=== PATIENT | female | born 1985 | race Caucasian/White ===

== ENCOUNTER 2016-09-19 21:27 | Emergency (ER) | payer SELFPAY ==
[2016-09-19 21:35] VITALS: BP 112/78
[2016-09-19] MEDS ORDERED: MORPHINE SULFATE 10 MG/ML VIAL. IM ONE (23:00)
[2016-09-19] MEDS ORDERED: LIDOCAINE 1% / SOD BICARB 8.4% 20 ML VIAL. IJ ONE (23:00)
[2016-09-19] MEDS ORDERED: HYDR-971 PO (23:52)
[2016-09-19] MEDS ORDERED: CLIN-44 PO (23:52)
--- NOTE | 2016-09-19 23:52 | PHYS DOC ---
Past Medical History Past Medical History: No Pertinent History Past Surgical History: No Surgical History Alcohol Use: None Drug Use: Marijuana Adult General Chief Complaint Chief Complaint: ABSCESS HPI HPI Patient is a 30 year old female presents emergency department stating that she has an abscess on her left buttocks. She states that it's been there for approximately one day. She states that the size is approximately size of a baseball. Denies any drainage or discharge coming from the site. She does state that she has had increased pain and discomfort. She has not taken anything for the pain. She denies fever, chills or any nausea or vomiting. Review of Systems Review of Systems Constitutional: Denies fever or chills [] Eyes: Denies change in visual acuity, redness, or eye pain [] HENT: Denies nasal congestion or sore throat [] Respiratory: Denies cough or shortness of breath [] Cardiovascular: No additional information not addressed in HPI [] GI: Denies abdominal pain, nausea, vomiting, bloody stools or diarrhea [] : Denies dysuria or hematuria [] Musculoskeletal: Denies back pain or joint pain [] Integument: Denies rash or skin lesions. Abscess to left buttock Neurologic: Denies headache, focal weakness or sensory changes [] Current Medications Current Medications Current Medications Medications (Trade) Dose Ordered Sig/[facility] Start Time Stop Time Status Last Admin Dose Admin Lidocaine/Sodium Bicarbonate (Buffered Lidocaine 1%) 20 ml 1X ONCE 09/19/16 23:00 09/19/16 23:01 DC 09/19/16 23:01 20 ML Morphine Sulfate 5 mg 1X ONCE 09/19/16 23:00 09/19/16 23:01 DC 09/19/16 23:01 5 MG Allergies Allergies Allergies Coded Allergies Type Severity Reaction Last Updated Verified No Known Drug Allergies 09/19/16 No Physical Exam Physical Exam Constitutional: Well developed, well nourished, no acute distress, non-toxic appearance. [] HENT: Normocephalic, atraumatic, bilateral external ears normal, oropharynx moist, no oral exudates, nose normal. [] Eyes: PERRLA, EOMI, conjunctiva normal, no discharge. [] Neck: Normal range of motion, no tenderness, supple, no stridor. [] Cardiovascular:Heart rate regular rhythm, no murmur [] Lungs & Thorax: Bilateral breath sounds clear to auscultation [] Skin: Warm, dry, no erythema, no rash. Patient with an area on the left buttocks that appears to be the size of a baseball. It is very tender red and warm with no drainage coming from the site. Back: No tenderness Extremities: No tenderness, no cyanosis, no clubbing, ROM intact, no edema. [] Neurologic: Alert and oriented X 3, normal motor function, normal sensory function, no focal deficits noted. [] Psychologic: Affect normal, judgement normal, mood normal. [] Current Patient Data Vital Signs Vital Signs Date Time Temp Pulse Resp B/P Pulse Ox O2 Delivery O2 Flow Rate FiO2 09/19/16 23:01 18 98 Room Air 09/19/16 21:35 98.6 106 98.6 EKG EKG [] Radiology/Procedures Radiology/Procedures [] Course & Med Decision Making Course & Med Decision Making Pertinent Labs and Imaging studies reviewed. (See chart for details) Patient will be discharged home in stable condition. She'll be provided clindamycin to take for the infection. She'll also be provided with hydrocodone for pain and discomfort. She was instructed this medication will cause drowsiness do not take any be alert and oriented. Recommended warm moist packs to the area several times a day 20 minutes at a time. Recommended following up in the next 3-5 days. Signs and symptoms to return back to emergency department as been provided. Family members agree with discharge instructions treatment regimens and follow-up recommendations. Dragon Disclaimer Dragon Disclaimer This electronic medical record was generated, in whole or in part, using a voice recognition dictation system. Departure Departure Impression: Primary Impression: Abscess Disposition: 01 HOME, SELF-CARE Condition: STABLE Referrals: CRISTIANE CREWS MD (PCP) Patient Instructions: Abscess, [id number] Additional Instructions: Activity as tolerated. Medication as prescribed. Hydrocodone for pain and discomfort. This medication will cause drowsiness do not take any be alert and oriented. You may also take ibuprofen for pain and discomfort in between the hydrocodone. Warm moist packs to the area on 3-4 times a day for 20 minutes at a time. Follow-up with primary care physician in the next 3-5 days. Return back to emergency prior signs symptoms of become worse. Scripts Hydrocodone/Apap 5-325 ([place] 5-325 Tablet)1 Each Tablet1 Tab PO PRN Q6HRS PRN PAIN #15 TAB Prov:GE CHEN APRN 09/19/16 Clindamycin Hcl 150 Mg Capsule3 Cap PO TID 10 Days Prov:GE CHEN APRN 09/19/16 Incision and Drainage Incision and Drainage : Site: left buttock abscess Blade Size: 11 I & D Procedure: betadine prep sterile drapes applied sterile dressing applied gauze wick placed Progress Site was cleaned with Betadine. 1% lidocaine 6 mL was injected into the area. # 11 blade was used to incise the area. Patient with thick yellow bloody drainage noted. Packing was placed. Sterile dressing applied by nursing staff. GE CHEN APRN Sep 19, 2016 23:52
== END 2016-09-20 00:25 | disposition home or self-care (01) ==
LOC: ER 21:27
DX: L02.31 Cutaneous abscess of buttock (principal); F12.10 Cannabis abuse, uncomplicated
CPT/HCPCS: 10060; 96372; 99283; J2270

== ENCOUNTER 2020-12-10 21:23 | Emergency (ER) | payer SELFPAY ==
[~2020-12-10] VITALS: Ht 165.1 cm; Wt 70.0 kg
[~2020-12-10 21:23] MED LIST: CLIN150C15 PO; HYDR-3164 PO
[2020-12-10 21:49] VITALS: BP 106/65
[2020-12-10] MEDS ORDERED: DOXY100T PO (22:06)
[2020-12-10] MEDS ORDERED: SUMA50TA3 PO (22:06)
--- NOTE | 2020-12-10 22:06 | PHYS DOC ---
Past Medical History Past Medical History: No Pertinent History (JOURDANHUBERT Luevano [employer]ER) Past Surgical History: No Surgical History (JOURDANHUBERT Luevano [employer]SEM[employer]ER) Smoking Status: Current Every Day Smoker Alcohol Use: None Drug Use: Marijuana (HUBERT NAPOLES [employer]) General Adult EDM: Chief Complaint: SEXUALLY TRANSMITTED DISEASE HPI: HPI: Patient is a 35 year old female who presents the ED today requesting STD t reatment for syphilis. Patient states the significant male partner was diagnosed with syphilis today and treated. She states she has a lesion in the vaginal area that is similar to the one that male partner has. Patient denies any chance she is . She is also complaining of intermittent episodes of migraine headache for 3 weeks. Patient also complaining of photophobia with her migraine headaches. Denies any nausea or vomiting. States she tried BC powder with no relief. (HUBERT NAPOLES [employer]) Review of Systems: Review of Systems: Constitutional: Denies fever or chills. [] Eyes: Denies change in visual acuity. [] HENT: Denies nasal congestion or sore throat. [] Respiratory: Denies cough or shortness of breath. [] Cardiovascular: Denies chest pain or edema. [] GI: Denies abdominal pain, nausea, vomiting, bloody stools or diarrhea. [] : Reports vaginal lesion and concern for syphilis. Denies dysuria. [] Musculoskeletal: Denies back pain or joint pain. [] Integument: Denies rash. [] Neurologic: Reports migraine headache. Reports photophobia. Denies focal weakness or sensory changes. [] Psychiatric: Denies depression or anxiety. [] (HUBERT NAPOLES [employer]ER) Heart Score: C/O Chest Pain: N/A Risk Factors: Risk Factors: DM, Current or recent (<one month) smoker, HTN, HLP, family history of CAD, obesity. Risk Scores: Score 0 - 3: 2.5% MACE over next 6 weeks - Discharge Home Score 4 - 6: 20.3% MACE over next 6 weeks - Admit for Clinical Observation Score 7 - 10: 72.7% MACE over next 6 weeks - Early Invasive Strategies (HUBERT NAPOLES [employer]ER) Current Medications: Current Medications Medications (Trade) Dose Ordered Sig/Sosa Start Time Stop Time Status Last Admin Dose Admin Doxycycline Hyclate (Vibra-Tab) 100 mg 1X ONCE 12/10/20 22:30 12/10/20 22:31 Metronidazole (Flagyl) 2,000 mg 1X ONCE 12/10/20 22:30 12/10/20 22:31 Penicillin G Benzathine (Bicillin L-A) 2,400,000 unit 1X ONCE 12/10/20 22:30 12/10/20 22:31 Sumatriptan Succinate (Imitrex) 25 mg 1X ONCE 12/10/20 22:30 12/10/20 22:31 (HUBERT NAPOLES APRN) Allergies: Allergies: Allergies Coded Allergies Type Severity Reaction Last Updated Verified No Known Drug Allergies 09/19/16 No (HUBERT NAPOLES APRN) Physical Exam: PE: Constitutional: Well developed, well nourished, no acute distress, non-toxic appearance. [] HENT: Normocephalic, atraumatic, bilateral external ears normal, oropharynx moist, no oral exudates, nose normal. [] Eyes: PERRLA, EOMI, conjunctiva normal, no discharge. [] Neck: Normal range of motion, no tenderness, supple, no stridor. [] Cardiovascular:Heart rate regular rhythm, no murmur [] Lungs & Thorax: Bilateral breath sounds clear to auscultation [] Abdomen: Bowel sounds normal, soft, no tenderness, no masses, no pulsatile masses. [] Skin: Warm, dry, no erythema, no rash. [] Back: No tenderness, no CVA tenderness. [] Extremities: No tenderness, no cyanosis, no clubbing, ROM intact, no edema. [] Neurologic: Alert and oriented X 3, normal motor function, normal sensory function, no focal deficits noted. Cranial nerves II through XII intact Psychologic: Affect normal, judgement normal, mood normal. [] (HUBERT NAPOLES APRN) EKG: EKG: [] (HUBERT NAPOLES APRN) Radiology/Procedures: Radiology/Procedures: [] (HUBERT NAPOLES APRN) Course & Med Decision Making: Course & Med Decision Making Pertinent Labs and Imaging studies reviewed. (See chart for details) This is a 35-year-old female patient presenting to the Ed requesting syphilis treatment. Patient states the most significant partner tested positive for syphilis and was treated. Patient was given penicillin IM in the ED, started on doxycycline to cover her for chlamydia and gonorrhea. Also given Flagyl to cover her for trichomonas. Given Imitrex for her headache. Discharge to home. STD education provided. (HUBERT NAPOLES APRN) Course & Med Decision Making Patients Care and treatment plan provided by ER Nurse Practitioner. I was available for consult. Patient's chart reviewed. (JOEPSH DEJESUS DO) Chantel Disclaimer: Chantel Disclaimer: This electronic medical record was generated, in whole or in part, using a voice recognition dictation system. (HUBERT NAPOLES APRN) Departure Departure Impression: Primary Impression: Concern about STD in female without diagnosis Additional Impression: Migraine headache Qualified Codes: G43.009 - Migraine without aura, not intractable, without status migrainosus Disposition: HOME / SELF CARE / HOMELESS Condition: STABLE Referrals: CRISTIANE CREWS MD (PCP) Follow-up with your primary care doctor and the health department for further concerns Patient Instructions: Migraine Headache, [id number], Sexually Transmitted Disease, [id number] Additional Instructions: You were treated for sexually transmitted diseases. Please complete the rest of the prescribed antibiotics. Take Imitrex as needed for headaches. Do not have any intercourse for 2 weeks. Use protection after that. Follow-up with the health department for further STD concerns Scripts Doxycycline Hyclate (DOXYCYCLINE HYCLATE) 100 Mg Tablet 1 TAB PO BID, #14 TAB Prov: HUBERT NAPOLES APRN 12/10/20 Sumatriptan Succinate (IMITREX) 50 Mg Tablet 1 TAB PO UD, #9 TAB 1 Refill Take 1 tablet at the onset of the headache, repeat in 2 hours if symptoms continue, do not take more than 2 tablets in 24 hours Prov: HUBERT NAPOLES APRN 12/10/20 HUBERT NAPOLES APRN Dec 10, 2020 22:06 JOESPH DEJESUS DO Dec 11, 2020 05:06
[2020-12-10] MEDS ORDERED: DOXYCYCLINE HYCLATE 100 MG TABLET PO ONE (22:30)
[2020-12-10] MEDS ORDERED: PENICILLIN G BENZATHINE LA 2,400,000 UNIT/4 ML DISP.SYRIN. IM ONE (22:30)
[2020-12-10] MEDS ORDERED: metroNIDAZOLE 500 MG TABLET PO ONE (22:30)
== END 2020-12-10 23:11 | disposition home or self-care (01) ==
LOC: ER 21:23
DX: Z20.2 Contact with and (suspected) exposure to infections with a predominantly sexual mode of transmission (principal); G43.009 Migraine without aura, not intractable, without status migrainosus; F17.200 Nicotine dependence, unspecified, uncomplicated
CPT/HCPCS: 96372; 99284; J0561

== ENCOUNTER 2020-12-13 01:44 | Emergency (ER) | payer SELFPAY ==
[~2020-12-13] VITALS: Ht 160 cm; Wt 54.0 kg
[~2020-12-13 01:44] MED LIST changes: +DOXY100T PO; +SUMA50TA3 PO
[2020-12-13 02:52] LABS: BASO % 1 % (0-3); EOS # 0.2 x10^3/uL (0.0-0.7); EOS % 3 % (0-3); HEMATOCRIT 40.8 % (36.0-47.0); HEMOGLOBIN 13.8 g/dL (12.0-15.5); LYMPH # 2.4 x10^3/uL (1.0-4.8); LYMPH % 34 % (24-48); MEAN CORPUSCULAR HEMOGLOBIN 29 pg (25-35); MEAN CORPUSCULAR HGB CONC 34 g/dL (31-37); MEAN CORPUSCULAR VOLUME 86 fL (79-100); MONO # 0.9 x10^3/uL (0.0-1.1); MONO % 12 % (0-9); NEUT # 3.5 x10^3/uL (1.8-7.7); NEUT % 50 % (31-73); PLATELET COUNT 354 x10^3/uL (140-400); RED BLOOD COUNT 4.73 x10^6/uL (3.50-5.40); RED CELL DISTRIBUTION WIDTH 13.8 % (11.5-14.5)
[2020-12-13] MEDS ORDERED: KETOROLAC 30 MG/ML VIAL. IM ONE (03:00)
[2020-12-13 03:01] LABS: CREATININE 0.9 mg/dL (0.6-1.0); GFR 70.8; POTASSIUM 4.1 mmol/L (3.5-5.1)
[2020-12-13 03:07] LABS: ALBUMIN 3.2 g/dL (3.4-5.0); ALBUMIN/GLOBULIN RATIO 0.7 (1.0-1.7); MAGNESIUM 2.2 mg/dL (1.8-2.4); TOTAL BILIRUBIN 0.2 mg/dL (0.2-1.0)
--- NOTE | 2020-12-13 04:16 | RAD ---
EXAMINATION: CT HEAD/BRAIN WO (CT HEAD WITHOUT IV CONTRAST) CLINICAL HISTORY: Left V3 pain and numbness TECHNIQUE: Serial axial images without IV contrast were obtained from the vertex to the foramen magnu m. CT Dose Reduction Employed: One or more of the following individualized dose reduction techniques wer e utilized for this examination: 1. Automated exposure control 2. Adjustment of the mA and/or kV ac cording to patient size 3. Use of iterative reconstruction technique. COMPARISON: None FINDINGS: Acute Change: No evidence of an acute infarct or other acute parenchymal process. Hemorrhage: No evidence of acute intracranial hemorrhage. Mass Lesion/Mass Effect: No evidence of intracranial mass or extraaxial fluid collection. No signific ant mass effect. Parenchyma: No significant volume loss. Parenchyma otherwise within normal limits for age. Ventricles: Ventricles within normal limits for age. Paranasal Sinuses and Skull Base: Visualized paranasal sinuses clear. Visualized skull base and soft tissues unremarkable. IMPRESSION: No evidence of acute intracranial abnormality. Electronically signed by: Kirill Tee DO (12/13/2020 4:14 AM) MELANIE
--- NOTE | 2020-12-13 05:28 | PHYS DOC ---
Past Medical History Past Medical History: Migraines, Other Additional Past Medical Histor: SYPHILIS Past Surgical History: Tubal ligation Smoking Status: Current Every Day Smoker Alcohol Use: None Drug Use: Marijuana General Adult EDM: Chief Complaint: OTHER COMPLAINTS HPI: HPI: 35 yo F who denies any past medical history presents to the ED with her boyfriend, (patient consents to his/her/their knowledge and involvement in pts' medical care), complaints of painful, burning sensation in left lower chin, has had these symptoms ever since she was given the penicillin injection in the emergency department on her prior ED visit to treat syphilis. States "I hurt all over, it hurts to swallow, my body aches, I'm tired." Has not taken anything for the pain. Denies any recent dental procedures or local anesthetic. Review of Systems: Review of Systems: Constitutional: Denies fever or chills. [] Eyes: Denies change in visual acuity. [] HENT: Denies nasal congestion or dental pain Respiratory: Denies cough or shortness of breath. [] Cardiovascular: Denies chest pain or edema. [] GI: Denies abdominal pain, nausea, vomiting, : Denies dysuria or vaginal bleeding Musculoskeletal: Denies back pain or joint pain. [] Integument: Denies rash or diaphoresis Neurologic: Denies headache, focal weakness or sensory changes. [] Endocrine: Denies polyuria or polydipsia. [] Lymphatic: Denies swollen glands. [] Psychiatric: Denies depression or anxiety. [] Heart Score: C/O Chest Pain: No Risk Factors: Risk Factors: DM, Current or recent (<one month) smoker, HTN, HLP, family history of CAD, obesity. Risk Scores: Score 0 - 3: 2.5% MACE over next 6 weeks - Discharge Home Score 4 - 6: 20.3% MACE over next 6 weeks - Admit for Clinical Observation Score 7 - 10: 72.7% MACE over next 6 weeks - Early Invasive Strategies Current Medications: Current Medications Medications (Trade) Dose Ordered Sig/Sosa Start Time Stop Time Status Last Admin Dose Admin Ketorolac Tromethamine (Toradol 30mg Vial) 30 mg 1X ONCE 12/13/20 03:00 12/13/20 03:01 DC 12/13/20 03:04 30 MG Allergies: Allergies: Allergies Coded Allergies Type Severity Reaction Last Updated Verified No Known Drug Allergies 09/19/16 No Physical Exam: PE: Constitutional: tired appearing, non-toxic appearance, smells of marijuana HENT: Normocephalic, atraumatic, normal TMs bilaterally, no obvious dental injury/caries/abscess Eyes: PERRLA, EOMI, conjunctiva normal, no discharge. Neck: Normal range of motion, supple, no nuchal rigidity or meningismus Cardiovascular: S1/2 present, regular rhythm Lungs & Thorax: Speaking in full sentences, bilateral equal chest rise, no tachypnea or increased work of breathing Skin: Warm, dry, no erythema, no rash. [] Back: No tenderness, no CVA tenderness. [] Extremities: No joint swelling, no cyanosis, Neurologic: CN2-12 intact, equal V3 nerve sensation but ttp over left V3 distribution of cheek, alert and oriented X 3, Psychologic: Affect normal, judgement normal, mood normal. [] Current Patient Data: Labs: Laboratory Tests Test 12/13/20 02:40 12/13/20 03:11 White Blood Count 7.0 x10^3/uL (4.0-11.0) Red Blood Count 4.73 x10^6/uL (3.50-5.40) Hemoglobin 13.8 g/dL (12.0-15.5) Hematocrit 40.8 % (36.0-47.0) Mean Corpuscular Volume 86 fL (79-100) Mean Corpuscular Hemoglobin 29 pg (25-35) Mean Corpuscular Hemoglobin Concent 34 g/dL (31-37) Red Cell Distribution Width 13.8 % (11.5-14.5) Platelet Count 354 x10^3/uL (140-400) Neutrophils (%) (Auto) 50 % (31-73) Lymphocytes (%) (Auto) 34 % (24-48) Monocytes (%) (Auto) 12 % (0-9) H Eosinophils (%) (Auto) 3 % (0-3) Basophils (%) (Auto) 1 % (0-3) Neutrophils # (Auto) 3.5 x10^3/uL (1.8-7.7) Lymphocytes # (Auto) 2.4 x10^3/uL (1.0-4.8) Monocytes # (Auto) 0.9 x10^3/uL (0.0-1.1) Eosinophils # (Auto) 0.2 x10^3/uL (0.0-0.7) Basophils # (Auto) 0.0 x10^3/uL (0.0-0.2) Sodium Level 142 mmol/L (136-145) Potassium Level 4.1 mmol/L (3.5-5.1) Chloride Level 103 mmol/L (98-107) Carbon Dioxide Level 30 mmol/L (21-32) Anion Gap 9 (6-14) Blood Urea Nitrogen 19 mg/dL (7-20) Creatinine 0.9 mg/dL (0.6-1.0) Estimated GFR (Cockcroft-Gault) 70.8 BUN/Creatinine Ratio 21 (6-20) H Glucose Level 124 mg/dL (70-99) H Calcium Level 9.0 mg/dL (8.5-10.1) Magnesium Level 2.2 mg/dL (1.8-2.4) Total Bilirubin 0.2 mg/dL (0.2-1.0) Aspartate Amino Transferase (AST) 9 U/L (15-37) L Alanine Aminotransferase (ALT) 23 U/L (14-59) Alkaline Phosphatase 111 U/L (46-116) Total Protein 8.0 g/dL (6.4-8.2) Albumin 3.2 g/dL (3.4-5.0) L Albumin/Globulin Ratio 0.7 (1.0-1.7) L POC Urine HCG, Qualitative Hcg negative (Negative) Laboratory Tests 12/13/20 02:40 Laboratory Tests 12/13/20 02:40 Vital Signs: Vital Signs Date Time Temp Pulse Resp B/P (MAP) Pulse Ox O2 Delivery O2 Flow Rate FiO2 12/13/20 02:15 98.2 91 22 126/69 (88) 97 Room Air 98.2 EKG: EKG: [] Radiology/Procedures: Radiology/Procedures: IMAGING REPORT Signed PATIENT: GIRISH LAMBERT DACCOUNT: [id number] : 1985 LOCATION: ER AGE: 35 SEX: F EXAM STATUS: REG ER ORD. PHYSICIAN: REZA REYNAGA DO REASON: left V3 pain and numbness PROCEDURE: CT HEAD WO CONTRAST EXAMINATION: CT HEAD/BRAIN WO (CT HEAD WITHOUT IV CONTRAST) CLINICAL HISTORY: Left V3 pain and numbness TECHNIQUE: Serial axial images without IV contrast were obtained from the vertex to the foramen magnum. CT Dose Reduction Employed: One or more of the following individualized dose reduction techniques were utilized for this examination: 1. Automated exposure control 2. Adjustment of the mA and/or kV according to patient size 3. Use of iterative reconstruction technique. COMPARISON: None FINDINGS: Acute Change: No evidence of an acute infarct or other acute parenchymal process. Hemorrhage: No evidence of acute intracranial hemorrhage. Mass Lesion/Mass Effect: No evidence of intracranial mass or extraaxial fluid collection. No significant mass effect. Parenchyma: No significant volume loss. Parenchyma otherwise within normal limits for age. Ventricles: Ventricles within normal limits for age. Paranasal Sinuses and Skull Base: Visualized paranasal sinuses clear. Visualized skull base and soft tissues unremarkable. IMPRESSION: No evidence of acute intracranial abnormality. Electronically signed by: Kirill Stovall DO (12/13/2020 4:14 AM) [facility] DICTATED and SIGNED BY: KIRILL STOVALL DO DATE: 12/13/20 [id number] Course & Med Decision Making: Course & Med Decision Making Pertinent Labs and Imaging studies reviewed. (See chart for details) Concern for paresthesias over left V3 nerve. Patient with no hypotension or tachycardia. Jarish Herxheimer reaction considered. Patient hemodynamically stable. Was prescribed sumatriptan which causes paresthesias. Will discharge home with strict ED return precautions were given for fever, tachycardia, dehydration, rash, syncope or dizziness/near syncope. Encouraged urgent outpatient follow-up with PMD. Life-threatening processes were considered but are low suspicion at this time, given history, physical exam and ED workup. Pt was educated on all prescription medications and adverse effects. All patient's questions were answered and pt was stable at time of discharge. I spoken with the patient and her caregivers. I explained the patient's condition, diagnoses and treatment plan based on the information available to me at this time. I have answered the patient and her caregiver's questions and addressed any concerns. The patient and her caregivers have a good understanding of patient's diagnosis, condition and treatment plan as can be expected at this point. Vital signs have been stable. Patient's condition is stable and appropriate for discharge from the emergency department. Patient will pursue further outpatient evaluation with primary care physician or other designated or consulting physician as outlined in the discharge instructions. The patient and/or caregivers are agreeable to this plan of care and follow-up instructions have been explained in detail. The patient and/or caregivers have received these instructions in written form and have expressed an understanding of the discharge instructions. The patient and/or caregivers are aware that any significant change of condition or worsening of symptoms should prompt immediate return to this or the closest emergency department or call to 911. Chantel Disclaimer: Chantel Disclaimer: This electronic medical record was generated, in whole or in part, using a voice recognition dictation system. Departure Departure Impression: Primary Impression: Paresthesias Additional Impression: Medication adverse effect Disposition: 01 HOME / SELF CARE / HOMELESS Condition: STABLE Referrals: NO PCP (PCP) Follow-up with your primary care physician in 24 to 48 hours OR FOLLOW UP WITH FAMILY MEDICINE: [address] [place] [address] Patient Instructions: Paresthesia Additional Instructions: AVOID TAKING SUMATRIPTAN -MAY CAUSE THESE SYMPTOMS, DISCUSS WITH YOUR PHYSICIAN EMERGENCY DEPARTMENT GENERAL DISCHARGE INSTRUCTIONS Thank you for coming to [facility] Emergency Department (ED) today and trusting us with you care. We trust that you had a positive experience in our Emergency Department. If you wish to speak to the department management, you may call the Director at [phone]. YOUR FOLLOW UP INSTRUCTIONS ARE FOLLOWS: 1. Do you have a private Doctor? If you do not have a private doctor, please ask for a resource list of physicians or clinics that may be able to assist you with follow up care. 2. The Emergency Physicain has interpreted your x-rays. The X-Ray specialist will also review them. If there is a change in the findings, you will be notified in 48 hours when at all possible. 3. A lab test or culture has been done, your results will be reviewed and you will be notified if you need a change in treatment. ADDITIONAL INSTRUCTIONS AND INFORMATION: 1. Your care today has been supervised by a physician who is specially trained in emergency care. Many problems require more than one evaluation for a complete diagnosis and treatment. We recommend that you schedule your follow up appointment as recommended to ensure complete treatment of you illness or injury. If you are unable to obtain follow up care and continue to have a problem, or if your condition worsens, we recommend that you return to the ED. 2. We are not able to safely determine your condition over the phone nor are we able to give sound medical advice over the phone. For these safety reasons, if you call for medical advice we will ask you to come to the ED for further evaluation. 3. If you have any questions regarding these discharge instructions please call the ED at [phone]. SAFETY INFORMATION: In the interest of safety, wellness, and injury prevention; we encourage you to wear your sealbelt, if you smoke; quite smoking, and we encourage family to use a protective helmet for bicycling and other sporting events that present an increased risk for head injury. IF YOUR SYMPTOMS WORSEN OR NEW SYMPTOMS DEVELOP, OR YOU HAVE CONCERNS ABOUT YOUR CONDITION; OR IF YOUR CONDITION WORSENS WHILE YOU ARE WAITING FOR YOUR FOLLOW UP APPOINTMENT; EITHER CONTACT YOUR PRIMARY CARE DOCTOR, THE PHYSICIAN WHOSE NAME AND NUMBER YOU WERE GIVEN, OR RETURN TO THE ED IMMEDIATELY. REZA PAULSON DO Dec 13, 2020 05:28
[2020-12-13 06:08] VITALS: BP 109/65
== END 2020-12-13 06:38 | disposition home or self-care (01) ==
LOC: ER 01:44
DX: R20.2 Paresthesia of skin (principal); T36.0X5A Adverse effect of penicillins, initial encounter; G43.909 Migraine, unspecified, not intractable, without status migrainosus; F17.200 Nicotine dependence, unspecified, uncomplicated; Y92.89 Other specified places as the place of occurrence of the external cause
CPT/HCPCS: 36415; 70450; 80053; 81025; 83735; 85025; 96372; 99285; J1885